=== PATIENT | female | born 1970 | race Caucasian/White ===

== ENCOUNTER 2017-03-19 15:42 | Emergency (ER) | payer OTHER | END 2017-03-19 15:53 | disposition left against medical advice (07) | LOC: CED 15:42 | DX: Z53.21 Procedure and treatment not carried out due to patient leaving prior to being seen by health care provider (principal) ==

== ENCOUNTER → 2019-03-28 | Outpatient (CLI) | payer OTHER | LOC: FIMAGING 14:56 ==